=== PATIENT | female | born 1955 | race Caucasian/White ===

== ENCOUNTER → 2018-05-18 09:56 | Outpatient (REF) | payer BC, SELFPAY ==
[2018-05-18 13:37] LABS: ALT 34 U/L (12-78); AST 20 U/L (15-37); Albumin 3.7 g/dL (3.4-5.0); Alkaline Phosphatase 89 U/L (46-116); Anion Gap 9.9 mmol/L (3-11); BUN 13 mg/dL (7-18); Bilirubin, Total 0.6 mg/dL (0.2-1.0); CO2 27.1 mmol/L (21.0-32.0); CREATININE 0.82 mg/dL (0.55-1.02); Calcium 9.1 mg/dL (8.5-10.1); Chloride 102 mmol/L (98-107); Glucose 100 mg/dL (70-100); Potassium 4.4 mmol/L (3.5-5.1); Sodium 139 mmol/L (136-145)
== END ==
LOC: NCHCN 09:56
PROVIDERS: PCP Family Medicine; Visit Provider Nurse Practitioner Family
DX: E78.5 Hyperlipidemia, unspecified (principal); I10 Essential (primary) hypertension; K57.90 Diverticulosis of intestine, part unspecified, without perforation or abscess without bleeding; E66.9 Obesity, unspecified
CPT/HCPCS: 80053

== ENCOUNTER → 2018-05-27 10:51 | Outpatient (CLI) | payer BC, SELFPAY ==
--- NOTE | 2018-05-27 10:42 | DI.REPORT_ITS ---
SYMPTOMS/DIAGNOSIS: PAIN RIGHT KNEE: Two views were obtained. There may be mild degenerative narrowing of the cartilaginous joint space of the medial tibiofemoral joint with minimal associated spurring. No other abnormality is seen.
== END ==
PROVIDERS: PCP Family Medicine; Visit Provider Orthopaedic Surgery
DX: M25.561 Pain in right knee (principal); M17.11 Unilateral primary osteoarthritis, right knee
CPT/HCPCS: 73560

== ENCOUNTER 2018-07-26 06:19 | Emergency (ER) | payer BC, SELFPAY ==
[2018-07-26 06:22] VITALS: BP 155/78; PULSE 63; RESP 18; TEMP 36.2; O2SAT 100
--- NOTE | 2018-07-26 06:39 | W.ED.GENAD ---
Discharge Plan Disposition Patient Disposition: HOME Discharge Details Chief Complaint: Epistaxis Clinical Impression: Acute anterior epistaxis Primary Care Provider: Shaniqua Gaytan ED Provider: Regan Da Silva Home Meds and New Rx's Prescriptions: Continue triamterene-hydrochlorothiazid [Dyazide] 1 EACH capsule 1 tab-cap PO DAILY RF: 0 losartan 25 MG tablet 50 mg PO DAILY RF: 0 atorvastatin 40 MG tablet 40 mg PO DAILY RF: 0 naproxen sodium [Aleve] 220 MG tablet 220 mg PO PRN RF: 0 Discharge Instructions Instructions: Nosebleed (ED) Additional Instructions: Do not blow your nose next few days. Please contact your primary care physician to arrange follow-up. Return to the ER for any worsening or new concerning symptoms. Stand Alone Forms: Work Release Referrals: Shaniqua Gaytan [Primary Care Provider] - Sriram Mcodwell MD [ [facility] STAFF PHYSICIAN] - Medical Decision Making 6:43 -- 63yo f with epistaxis. Afrin and nasal clamp applied. 7:40 -- Patient reassessed and bleeding slowed but still with oozing. I was able to visualize a small oozing bleed from kesselbach plexus. Patient provided verbal consent to cauterization. Silver nitrate cauterization of superficial mucosa performed without complication and bleeding controlled. Usual and customary discharge instructions provided. HPI General Mode of arrival: ambulatory. Date/Time Provider Initiated Documentation: 07/26/18 06:24. Limitations to Documentation: no limitations. Information obtained by: patient. HPI Narrative: 63-year-old female with history of hypertension presents with epistaxis. Patient notes that bleeding started from her left nare around 530 this morning. Bleeding persisted and then she noticed some blood coming from her right nare well. Bleeding was heavy. No modifiers. She does not take blood thinners. Related Data Home Medications Medication Instructions Recorded Confirmed losartan 50 mg PO DAILY tab-cap 08/15/16 07/26/18 triamterene-hydrochlorothiazid 1 tab-cap PO DAILY tab-cap 08/15/16 07/26/18 [Dyazide] atorvastatin 40 mg PO DAILY tab-cap 12/10/17 07/26/18 naproxen sodium [Aleve] 220 mg PO PRN 12/10/17 07/26/18 Allergies Allergy/AdvReac Type Severity Reaction Status Date / Time Penicillins Allergy Unknown Unverified 05/27/18 10:31 neomycin Allergy Skin Rash Unverified 05/27/18 10:31 General Stated Complaint: Epistaxis TEVIN: 4 Review of Systems Constitutional Denies fatigue ENT Reports as per HPI, Denies dizziness and Reports epistaxis Neurologic Denies dizziness Endocrine Denies fatigue Hematologic/Lymphatic Denies easy bleeding PFSH Family History Other Breast cancer Colon cancer Glioblastoma Medical History HTN (hypertension) Hemorrhoids Hypercholesterolemia Left breast mass Left knee pain Overweight Social History Smoking/Tobacco Use Status: Never Surgical History section Colonoscopy - MAC (03/29/18) Tonsillectomy Exam Const General: cooperative and no acute distress HENMT Head: normocephalic and atraumatic General nose exam: no epistaxis Mouth: moist mucous membranes Eyes Conjunctivae: normal conjunctivae Sclera: normal sclerae EOM: EOM intact bilaterally Neck Neck: trachea midline and supple Resp Auscultation: clear to auscultation bilaterally, no rales, no rhonchi and no wheezes Cardio Jugular venous pressure: no JVD Rate: regular rate and not tachycardic Rhythm: regular rhythm Neuro General: alert and awake Course Vital Signs Temperature 36.2 C L 07/26/18 06:22 Pulse 63 07/26/18 06:22 Respiratory Rate 18 07/26/18 06:22 Blood Pressure 155/78 H 07/26/18 06:22 Pulse Oximetry 100 07/26/18 06:22 Temperature 36.2 C L 07/26/18 06:22 Temperature Source Temporal Artery Scan 07/26/18 06:22 Pulse 63 07/26/18 06:22 Respiratory Rate 18 07/26/18 06:22 Respiratory Effort 07/26/18 06:22 Blood Pressure 155/78 H 07/26/18 06:22 Pulse Oximetry 100 07/26/18 06:22 Oxygen Delivery Method Room Air 07/26/18 06:22 Oxygen Flow Rate 0 07/26/18 06:22
--- NOTE | 2018-07-26 06:45 | ED.GENADUL_ITS ---
Discharge Plan Disposition Patient Disposition: HOME Discharge Details Chief Complaint: Epistaxis Clinical Impression: Acute anterior epistaxis Primary Care Provider: Shaniqua Gaytan ED Provider: Regan Da Silva Home Meds and New Rx's Prescriptions: Continue triamterene-hydrochlorothiazid [Dyazide] 1 EACH capsule 1 tab-cap PO DAILY RF: 0 losartan 25 MG tablet 50 mg PO DAILY RF: 0 atorvastatin 40 MG tablet 40 mg PO DAILY RF: 0 naproxen sodium [Aleve] 220 MG tablet 220 mg PO PRN RF: 0 Discharge Instructions Instructions: Nosebleed (ED) Additional Instructions: Do not blow your nose next few days. Please contact your primary care physician to arrange follow-up. Return to the ER for any worsening or new concerning symptoms. Stand Alone Forms: Work Release Referrals: Shaniqua Gaytan [Primary Care Provider] - Sriram Mcdowell MD [ [facility] STAFF PHYSICIAN] - Medical Decision Making 6:43 -- 63yo f with epistaxis. Afrin and nasal clamp applied. 7:40 -- Patient reassessed and bleeding slowed but still with oozing. I was able to visualize a small oozing bleed from kesselbach plexus. Patient provided verbal consent to cauterization. Silver nitrate cauterization of superficial mucosa performed without complication and bleeding controlled. Usual and customary discharge instructions provided. HPI General Mode of arrival: ambulatory . Date/Time Provider Initiated Documentation: 07/26/18 06:24 . Limitations to Documentation: no limitations . Information obtained by: patient . HPI Narrative: 63-year-old female with history of hypertension presents with epistaxis. Patient notes that bleeding started from her left nare around 530 this morning. Bleeding persisted and then she noticed some blood coming from her right nare well. Bleeding was heavy. No modifiers. She does not take blood thinners. Related Data Home Medications Medication Instructions Recorded Confirmed losartan 50 mg PO DAILY tab-cap 08/15/16 07/26/18 triamterene-hydrochlorothiazid 1 tab-cap PO DAILY tab-cap 08/15/16 07/26/18 [Dyazide] atorvastatin 40 mg PO DAILY tab-cap 12/10/17 07/26/18 naproxen sodium [Aleve] 220 mg PO PRN 12/10/17 07/26/18 Allergies Allergy/AdvReac Type Severity Reaction Status Date / Time Penicillins Allergy Unknown Unverified 05/27/18 10:31 neomycin Allergy Skin Rash Unverified 05/27/18 10:31 General Stated Complaint: Epistaxis TEVIN: 4 Review of Systems Constitutional Denies fatigue ENT Reports as per HPI, Denies dizziness and Reports epistaxis Neurologic Denies dizziness Endocrine Denies fatigue Hematologic/Lymphatic Denies easy bleeding PFSH Family History Other Breast cancer Colon cancer Glioblastoma Medical History HTN (hypertension) Hemorrhoids Hypercholesterolemia Left breast mass Left knee pain Overweight Social History Smoking/Tobacco Use Status: Never Surgical History section Colonoscopy - MAC (03/29/18) Tonsillectomy Exam Const General: cooperative and no acute distress HENMT Head: normocephalic and atraumatic General nose exam: no epistaxis Mouth: moist mucous membranes Eyes Conjunctivae: normal conjunctivae Sclera: normal sclerae EOM: EOM intact bilaterally Neck Neck: trachea midline and supple Resp Auscultation: clear to auscultation bilaterally, no rales, no rhonchi and no wheezes Cardio Jugular venous pressure: no JVD Rate: regular rate and not tachycardic Rhythm: regular rhythm Neuro General: alert and awake Course Vital Signs Temperature 36.2 C L 07/26/18 06:22 Pulse 63 07/26/18 06:22 Respiratory Rate 18 07/26/18 06:22 Blood Pressure 155/78 H 07/26/18 06:22 Pulse Oximetry 100 07/26/18 06:22 Temperature 36.2 C L 07/26/18 06:22 Temperature Source Temporal Artery Scan 07/26/18 06:22 Pulse 63 07/26/18 06:22 Respiratory Rate 18 07/26/18 06:22 Respiratory Effort 07/26/18 06:22 Blood Pressure 155/78 H 07/26/18 06:22 Pulse Oximetry 100 07/26/18 06:22 Oxygen Delivery Method Room Air 07/26/18 06:22 Oxygen Flow Rate 0 07/26/18 06:22
== END 2018-07-26 08:01 | disposition home or self-care (01) ==
PROVIDERS: Emergency Provider Student in an Organized Health Care Education/Training Program; PCP Family Medicine
DX: R04.0 Epistaxis (principal); I10 Essential (primary) hypertension
CPT/HCPCS: 30901

== ENCOUNTER 2019-07-07 10:36 | Outpatient (REF) | payer MEDICARE, BC, SELFPAY ==
[2019-07-07 12:57] LABS: Abs Immature Grans 0.02 k/cumm (0.0-0.09); Absolute Basophil Count 0.02 k/cumm (0.0-0.2); Absolute Eosinophil Count 0.09 k/cumm (0.0-0.7); Absolute Lymphocyte Count 2.15 k/cumm (1.2-3.4); Absolute Monocyte Count 0.69 k/cumm (0.11-0.7); Absolute Neutrophil Count 4.81 k/cumm (1.2-6.7); Basophils % 0.3; Eosinophils % 1.2; HCT 46.6 % (36.0-46.0); Immature Grans % 0.3; Lymphocytes % 27.6; Mean Corp. HGB Concentration 32.2 g/dL (32.0-36.0); Mean Corpuscular Hemoglobin 31.9 pg (27.0-33.0); Mean Corpuscular Volume 99.1 fL (80-95); Mean Platelet Volume 10.7 fL (8.0-11.0); Monocytes % 8.9; Neutrophils % 61.7; Platelet Count 303 x1000/uL (130-400); RBC Distribution Width 12.2 % (11.7-14.6); White Blood Cell Count 7.78 k/cumm (4.4-10.8)
[2019-07-07 15:12] LABS: ALT 41 U/L (14-59); AST 23 U/L (15-37); Albumin 3.8 g/dL (3.4-5.0); Alkaline Phosphatase 94 U/L (46-116); Anion Gap 9.4 mmol/L (3-11); BUN 13 mg/dL (7-18); Bilirubin, Total 0.5 mg/dL (0.2-1.0); CO2 28.6 mmol/L (21.0-32.0); CREATININE 0.75 mg/dL (0.55-1.02); Calcium 9.3 mg/dL (8.5-10.1); Chloride 100 mmol/L (98-107); Glucose 110 mg/dL (70-100); Potassium 4.5 mmol/L (3.5-5.1); Sodium 138 mmol/L (136-145); Total Protein 7.3 g/dL (6.4-8.2)
== END 2019-07-07 10:56 ==
LOC: NCHCN 10:36
PROVIDERS: PCP Family Medicine; Visit Provider Nurse Practitioner Family
DX: Z00.00 Encounter for general adult medical examination without abnormal findings (principal); E78.5 Hyperlipidemia, unspecified; I10 Essential (primary) hypertension; R23.8 Other skin changes; H91.93 Unspecified hearing loss, bilateral; K64.9 Unspecified hemorrhoids
CPT/HCPCS: 80053; 85025

== ENCOUNTER 2019-08-04 00:57 | Outpatient (CLI) | payer MEDICARE, BC, SELFPAY ==
--- NOTE | 2019-08-04 15:00 | DI.DEXA_ITS ---
EXAM: XR DEXA BONE DENSITY W/WO JONI CLINICAL HISTORY: ASYPTOMATIC POSTMENOPAUSAL STATUS Z78.0 TECHNIQUE: DEXA scan was performed according to the usual protocol. COMPARISON: No exams were available for comparison FINDINGS: Findings for lumbar spine scanning are a T-score of -0.5. Findings for left hip scanning are a T-score of -1.1 with left femoral neck T-score of -1.6. Left forearm scanning shows T-score of -0.6. IMPRESSION: Findings consistent with osteopenia according to the WHO criteria. Lateral vertebral scanogram shows no definite vertebral compression fracture, although minimal wedging is noted in midthoracic vertebr ae, probably developmental. If clinically appropriate, additional evaluation with radiographs of the thoracic spine could be obtained to more accurately evaluate the thoracic vertebrae for fracture.
--- NOTE | 2019-08-04 15:15 | DI.MAMMO_ITS ---
EXAM: MAMMO SCREENING CLINICAL HISTORY: SCREENING Z12.31 TECHNIQUE: Mammograms were interpreted according to the usual protocol including computer analysis w [employer] CAD system, tomosynthesis and C-view imaging. FINDINGS: The breasts are of moderate density with fairly symmetrical distribution of fibroglandular tissue. T here is a lobulated area of nodularity in the central portion of the left breast which appears to hav e increased in size in comparison with previous examinations and which now measures up to about 13 mi llimeters in diameter. No other mass identified in either breast. No clumped microcalcification is seen. The mass as visualized appears fairly well-circumscribed but the borders are incompletely seen . Additional mammographic views are recommended to include MLO and CC spot compression views and crista st ultrasound of left breast is recommended as well. IMPRESSION: Additional mammographic views of the left breast and left breast ultrasound are requested as describe d above. Category 0. Breast density, category B. BI-RADS Cat 0 - Assessment Incomplete: Need additional imaging evaluation. Breast Density - Category B - Scattered areas of fibroglandular density.
== END 2019-08-04 01:17 ==
PROVIDERS: PCP Family Medicine; Visit Provider Nurse Practitioner Family
DX: Z78.0 Asymptomatic menopausal state (principal); M85.88 Other specified disorders of bone density and structure, other site; Z12.31 Encounter for screening mammogram for malignant neoplasm of breast; R92.8 Other abnormal and inconclusive findings on diagnostic imaging of breast
CPT/HCPCS: 77063; 77067; 77080

== ENCOUNTER 2019-08-11 01:35 | Outpatient (CLI) | payer MEDICARE, BC, SELFPAY ==
--- NOTE | 2019-08-11 14:46 | DI.MAMMO_ITS ---
EXAM: MG MAMMO SCREEN CALL BACK UNI AND US BREAST LT LIMITED CLINICAL HISTORY: LOBULATED AREA OF NODULARITY IN CENTRAL PORTION LT BREAST, APPEARS TO HAVE INCREAS ED IN SIZE TECHNIQUE: Spot compression views with tomography were performed in the MLO and CC projections. Ult rasound performed using standard protocol. COMPARISON: Mammograms from 2012 through 2019. FINDINGS: There is a persistent lobulated circumscribed nodule in the central left breast. There is no definit e change in size when compared with previous exams. Left breast ultrasound: 2 adjacent cysts are noted in the central left breast measuring 6 and 7 samantha meters in size. The appearance is consistent with the mammographic nodule. No suspicious masses are identified. IMPRESSION: Category 2, negative mammogram with benign findings. Yearly screening mammography is recommended. BI-RADS Cat 2 - Benign Findings Breast Density - Category B - Scattered areas of fibroglandular density
== END 2019-08-11 01:55 ==
PROVIDERS: PCP Family Medicine; Visit Provider Nurse Practitioner Family
DX: Z12.31 Encounter for screening mammogram for malignant neoplasm of breast (principal); R92.8 Other abnormal and inconclusive findings on diagnostic imaging of breast; N60.02 Solitary cyst of left breast
CPT/HCPCS: 76642; 77063; 77067

== ENCOUNTER 2020-11-19 16:02 | Outpatient (REF) | payer MEDICARE, BC, SELFPAY ==
[2020-11-19 22:02] LABS: Abs Immature Grans 0.04 10^3/uL (0.0-0.06); Absolute Basophil Count 0.03 10^3/uL (0.0-0.2); Absolute Eosinophil Count 0.08 10^3/uL (0.0-0.7); Absolute Lymphocyte Count 2.44 10^3/uL (1.2-3.4); Absolute Monocyte Count 0.83 10^3/uL (0.1-0.8); Absolute Neutrophil Count 7.35 10^3/uL (1.2-6.7); Basophils % 0.3; Eosinophils % 0.7; HCT 44.4 % (36.0-46.0); HGB 14.5 g/dL (11.2-15.7); Immature Grans % 0.4; Lymphocytes % 22.7; MCHC 32.7 % (32.0-36.0); MCV 100.9 fL (80-95); MPV 10.9 fL (8.0-11.0); Monocytes % 7.7; Neutrophils % 68.2; Nucleated RBC 0 %; Platelet Count 318 10^3/uL (130-400); RDW 11.9 % (11.7-14.6); RDW-SD 44.5 fL; WBC 10.77 10^3/uL (4.4-10.8)
[2020-11-19 22:18] LABS: ALT 37 U/L (14-59); AST 26 U/L (15-37); Alkaline Phosphatase 92 U/L (46-116); Anion Gap 9.1 mmol/L (3-11); BUN 14 mg/dL (7-18); Bilirubin, Total 0.5 mg/dL (0.2-1.0); CO2 30.9 mmol/L (21.0-32.0); CREATININE 0.8 mg/dL (0.55-1.02); Calcium 9.8 mg/dL (8.5-10.1); Chloride 100 mmol/L (98-107); Glucose 100 mg/dL (74-106); Potassium 3.9 mmol/L (3.5-5.1); Sodium 140 mmol/L (136-145); Total Protein 7.5 g/dL (6.4-8.2)
[2020-11-19 22:21] LABS: Hemoglobin A1C 5.6 % (<5.7)
[2020-11-21 10:34] LABS: Hepatitis C Ab w Rflx HCV PCR Negative (Negative)
== END 2020-11-19 16:03 | disposition home or self-care (01) ==
LOC: NCHCN 16:02
PROVIDERS: PCP Family Medicine; Visit Provider Nurse Practitioner Family
DX: R07.89 Other chest pain (principal); R13.10 Dysphagia, unspecified; H61.309 Acquired stenosis of external ear canal, unspecified, unspecified ear; M85.88 Other specified disorders of bone density and structure, other site; K64.9 Unspecified hemorrhoids; E78.5 Hyperlipidemia, unspecified; I10 Essential (primary) hypertension; Z00.00 Encounter for general adult medical examination without abnormal findings; Z11.59 Encounter for screening for other viral diseases
CPT/HCPCS: 80053; 86803; 83036; 85025

== ENCOUNTER 2020-11-23 03:03 | Outpatient (CLI) | payer MEDICARE, BC, SELFPAY ==
--- NOTE | 2020-11-23 15:55 | DI.MAMMO_ITS ---
EXAM: MG MAMMO SCREENING CLINICAL HISTORY: SCREENING,Z12.31. TECHNIQUE: Bilateral full field digital CC and MLO mammographic images were obtained with 3D tomosyn thesis and utilizing computer aided detection (CAD). COMPARISON: Prior mammograms dating back to 2012, the most recent being 2019. Prior ultrasound revi ewed. Sister diagnosed breast cancer age 50 FINDINGS: There are multiple stable benign-appearing nodules both breasts again noted. However, in the left breast there is a new noncalcified lobulated nodule measuring 4 x 3 millimeters located 3 cm in from the nipple. Breast ultrasound recommended. No malignant-appearing microcalcifi cation groups in this region or elsewhere in either breast. There is no significant architectural d istortion nor skin thickening-retraction. IMPRESSION: In addition to stable bilateral nodules there is a new 4 x 3 millimeter left breast nodules described above. Ultrasound is recommended to determine if this is solid or cystic. BI-RADS Category 0 - Assessment Incomplete: Need additional imaging evaluation Breast Density - Category B - Scattered areas of fibroglandular density Breast density Category C or D implies that the patient has dense breast tissue. Dense breast tissue can make it harder to find cancer on a mammogram. Dense breast tissue is also associated with an incr eased risk of breast cancer. This information about the result of the mammogram report was provided to the patient to raise their awareness. Use this report when you speak with the patient about their risks for breast cancer, which includes their family history. At that time, you may recommend additional screening tests (Ultrasoun d or MRI) as these tests may add significant information. A negative radiographic report should not delay biopsy if a dominant or clinically suspicious mass is present. Up to ten percent of cancers are not identified on mammography. A negative report may reinforce clinical impression. Adenosis and dense breasts may obscure an underlying neoplasm. False positive reports average 6 to 10%. Patient will receive a letter notifying them of these results.
== END 2020-11-23 03:04 ==
PROVIDERS: PCP Nurse Practitioner Family; Visit Provider Nurse Practitioner Family
DX: Z12.31 Encounter for screening mammogram for malignant neoplasm of breast (principal); N63.20 Unspecified lump in the left breast, unspecified quadrant; N63.10 Unspecified lump in the right breast, unspecified quadrant
CPT/HCPCS: 77063; 77067

== ENCOUNTER 2020-11-29 01:15 | Outpatient (CLI) | payer MEDICARE, BC, SELFPAY ==
--- NOTE | 2020-11-29 | DI.US_ITS ---
EXAM: US BREAST LT LIMITED CLINICAL HISTORY: F/U MAMMO, LT BREAST NODULE,R92.8. TECHNIQUE: Limited ultrasound of the left breast was performed. COMPARISON: Prior mammograms were reviewed. Most recent mammogram is 11/23/2020 FINDINGS: At the 3 o'clock position there is a small conglomeration microcysts measuring 4 x 3 millimeters whic h corresponds to the benign-appearing nodule seen on the recent screening mammogram. Also noted is a larger conglomeration microcyst at 2 o'clock position measuring approximately 10 by 6 millimeters and corresponding to the larger more stable nodule seen on the mammogram. IMPRESSION: Benign left breast ultrasound findings as described above. The recently described new 4 millimeter n odule on the mammogram corresponds to a small conglomeration microcysts of similar size located at th e 3 o'clock position on today's ultrasound. Appropriate follow-up is repeat left breast MAMMOGRAM in 6 months, with earlier imaging if a self det ected breast change is noted.. BI-RADS Category 3 - 6 month - Probably Benign Finding: Recommend follow-up mammography in 6 months Breast Density - Category B - Scattered areas of fibroglandular density Breast density Category C or D implies that the patient has dense breast tissue. Dense breast tissue can make it harder to find cancer on a mammogram. Dense breast tissue is also associated with an incr eased risk of breast cancer. This information about the result of the mammogram report was provided to the patient to raise their awareness. Use this report when you speak with the patient about their risks for breast cancer, which includes their family history. At that time, you may recommend additional screening tests (Ultrasoun d or MRI) as these tests may add significant information. A negative radiographic report should not delay biopsy if a dominant or clinically suspicious mass is present. Up to ten percent of cancers are not identified on mammography. A negative report may reinforce clinical impression. Adenosis and dense breasts may obscure an underlying neoplasm. False positive reports average 6 to 10%. Patient will receive a letter notifying them of these results.
== END 2020-11-29 01:16 ==
LOC: DI 01:15
PROVIDERS: PCP Nurse Practitioner Family; Visit Provider Nurse Practitioner Family
DX: Z12.31 Encounter for screening mammogram for malignant neoplasm of breast (principal); R92.8 Other abnormal and inconclusive findings on diagnostic imaging of breast; N60.82 Other benign mammary dysplasias of left breast
CPT/HCPCS: 76642

== ENCOUNTER 2021-06-04 03:26 | Outpatient (CLI) | payer MEDICARE, SELFPAY ==
--- NOTE | 2021-06-04 | DI.MAMMO_ITS ---
Exam(s) MAMMO DIAGNOSTIC UNI EXAM: MAMMO DIAGNOSTIC UNI CLINICAL HISTORY: ABNL FINDINGS, LT BREAST MASS, N63. COMPARISON: 23 November 2020 mammogram and 29 November 2020 left breast ultrasound TECHNIQUE: Craniocaudal and mediolateral oblique Full Field Digital Mammography views of the left b reast with Computer Aided Diagnosis followed by Tomosynthesis FINDINGS: Mammography/Tomosynthesis: Masses/Architectural Distortion: Stable areas of nodularity in the seen upper central left breast. N o suspicious masses. Microcalcifications: No suspicious pleomorphic-type are seen. Skin Thickening/Nipple Retraction: None. IMPRESSION: 1. No evidence of malignancy is noted. 2. Unless there is more urgent need, follow-up screening mammography is recommended, as per [place] [employer] guidelines. BI-RADS Category 2 - Benign Findings Breast Density - Category B - Scattered areas of fibroglandular density A negative radiographic report should not delay biopsy if a dominant or clinically suspicious mass is present. Up to ten percent of cancers are not identified on mammography. A negative report may reinforce clinical impression. Adenosis and dense breasts may obscure an underlying neoplasm. False positive reports average 6 to 10%. Patient will receive a letter notifying them of these results.
== END 2021-06-04 03:46 ==
PROVIDERS: PCP Nurse Practitioner Family; Visit Provider Nurse Practitioner Family
DX: R92.8 Other abnormal and inconclusive findings on diagnostic imaging of breast (principal); N63.25 Unspecified lump in the left breast, overlapping quadrants
CPT/HCPCS: 77061; 77065; G0279

== ENCOUNTER 2021-12-30 10:19 | Outpatient (REF) | payer MEDICARE, SELFPAY ==
[2021-12-30 20:50] LABS: Abs Immature Grans 0.04 10^3/uL (0.0-0.06); Absolute Basophil Count 0.04 10^3/uL (0.0-0.2); Absolute Eosinophil Count 0.09 10^3/uL (0.0-0.7); Absolute Lymphocyte Count 2.14 10^3/uL (1.2-3.4); Absolute Monocyte Count 0.73 10^3/uL (0.1-0.8); Absolute Neutrophil Count 6.17 10^3/uL (1.2-6.7); Basophils % 0.4; HGB 14.8 g/dL (11.2-15.7); Immature Grans % 0.4; Lymphocytes % 23.2; MCH 32.5 pg (27.0-33.0); MCHC 32.2 % (32.0-36.0); MCV 101.1 fL (80-95); MPV 10.7 fL (8.0-11.0); Monocytes % 7.9; Neutrophils % 67.1; Nucleated RBC 0 %; Platelet Count 287 10^3/uL (130-400); RBC 4.55 10^6/uL (3.93-5.22); RDW 11.7 % (11.7-14.6); RDW-SD 43.5 fL; WBC 9.21 10^3/uL (4.4-10.8)
[2021-12-30 21:31] LABS: ALT 28 U/L (14-59); AST 20 U/L (15-37); Alkaline Phosphatase 78 U/L (46-116); Anion Gap 9.6 mmol/L (3-11); BUN 17 mg/dL (7-18); Bilirubin, Total 0.6 mg/dL (0.2-1.0); CO2 28.4 mmol/L (21.0-32.0); CREATININE 0.7 mg/dL (0.55-1.02); Calcium 9.3 mg/dL (8.5-10.1); Chloride 102 mmol/L (98-107); Folate 11.1 ng/mL (8.6-20.0); Glucose 104 mg/dL (74-106); Potassium 4.3 mmol/L (3.5-5.1); Sodium 140 mmol/L (136-145); Total Protein 7.2 g/dL (6.4-8.2); Vitamin B12 284 pg/mL (193-986)
[2021-12-30 22:08] LABS: Vitamin D 25 Total 38.2 ng/mL (30-100)
== END 2021-12-30 10:20 | disposition home or self-care (01) ==
LOC: NCHCN 10:19
PROVIDERS: PCP Nurse Practitioner Family; Visit Provider Nurse Practitioner Family
DX: I10 Essential (primary) hypertension (principal); D75.89 Other specified diseases of blood and blood-forming organs
CPT/HCPCS: 80053; 82306; 82607; 82746; 85025

== ENCOUNTER → 2022-06-09 02:36 | Outpatient (CLI) | payer MEDICARE, SELFPAY ==
--- NOTE | 2022-06-09 | DI.MAMMO_ITS ---
Exam(s) MAMMO SCREENING EXAM: MAMMO SCREENING CLINICAL HISTORY: SCREENING, Z12.31,FAMILY H/O BREAST CA,Z80.3 TECHNIQUE: Bilateral full field digital CC and MLO mammographic images were obtained with 3D tomosyn thesis and utilizing computer aided detection (CAD). COMPARISON: Available for comparison. FINDINGS: Masses/Architectural Distortion: The nodules in the central left breast are stable. No suspicious no dules or areas of architectural distortion are present. Microcalcifications: No suspicious pleomorphic-type are seen. Skin Thickening/Nipple Retraction: None. IMPRESSION: 1. No significant interval change with no specific features of malignancy noted. 2. Unless there is more urgent need, screening mammography is recommended, as per [place] [employer] guidelines. BI-RADS Category 2 - Benign Findings Breast Density - Category B - Scattered areas of fibroglandular density Breast density category C or D implies that the patient has dense breast tissue. Dense breast tissue is very common and is not abnormal but dense breast tissue can make it harder to find cancer on a ma mmogram. Also, dense breast tissue may increase their breast cancer risk. This information about the result of the mammogram report was provided to the patient to raise their awareness. Use this report when you speak with the patient about their risks for breast cancer, which includes their family hist ory. At that time, you may recommend for more screening tests (Ultrasound or MRI) as they might be us eful based on their risk. A negative radiographic report should not delay biopsy if a dominant or clinically suspicious mass is present. Up to ten percent of cancers are not identified on mammography. A negative report may reinforce clinical impression. Adenosis and dense breasts may obscure an underlying neoplasm. False positive reports average 6 to 10%. Patient will receive a letter notifying them of these results.
== END ==
PROVIDERS: PCP Nurse Practitioner Family; Visit Provider Nurse Practitioner Family
DX: Z12.31 Encounter for screening mammogram for malignant neoplasm of breast (principal); Z80.3 Family history of malignant neoplasm of breast
CPT/HCPCS: 77063; 77067

== ENCOUNTER 2023-06-12 17:51 | Outpatient (REF) | payer MEDICARE, SELFPAY ==
[2023-06-12 15:47] LABS: HCT 44.3 % (36.0-46.0); HGB 14.7 g/dL (11.2-15.7); Lymphocytes % 26.2; MCH 33.3 pg (27.0-33.0); MCHC 33.2 % (32.0-36.0); MCV 101 fL (80-95); MPV 10.4 fL (8.0-11.0); Monocytes % 8.7; Neutrophils % 63.4; Platelet Count 250 10^3/uL (130-400); RBC 4.41 10^6/uL (3.93-5.22); RDW 11.9 % (11.7-14.6); RDW-SD 44.1 fL; WBC 7.79 10^3/uL (4.4-10.8)
[2023-06-12 15:48] LABS: Abs Immature Grans 0.03 10^3/uL (0.0-0.06); Absolute Basophil Count 0.02 10^3/uL (0.0-0.2); Absolute Eosinophil Count 0.08 10^3/uL (0.0-0.7); Absolute Lymphocyte Count 2.04 10^3/uL (1.2-3.4); Absolute Monocyte Count 0.68 10^3/uL (0.1-0.8); Absolute Neutrophil Count 4.94 10^3/uL (1.2-6.7); Basophils % 0.3; Immature Grans % 0.4
[2023-06-12 16:59] LABS: ALT 35 U/L (14-59); AST 22 U/L (15-37); Albumin 3.7 g/dL (3.4-5.0); Alkaline Phosphatase 85 U/L (46-116); Anion Gap 7.4 mmol/L (3-11); BUN 16 mg/dL (7-18); Bilirubin, Total 0.7 mg/dL (0.2-1.0); CO2 31.6 mmol/L (21.0-32.0); CREATININE 0.7 mg/dL (0.55-1.02); Calcium 9.5 mg/dL (8.5-10.1); Chloride 101 mmol/L (98-107); Estimated GFR 92.98 (mL/min/1.73m2); Glucose 102 mg/dL (74-106); Potassium 4.3 mmol/L (3.5-5.1); Sodium 140 mmol/L (136-145); Total Protein 6.9 g/dL (6.4-8.2); Vitamin B12 1016 pg/mL (193-986)
[2023-06-12 19:19] LABS: Vitamin D 25 Total 41.6 ng/mL (30-100)
== END 2023-06-12 17:52 | disposition home or self-care (01) ==
LOC: NCHCN 17:51
PROVIDERS: PCP Nurse Practitioner Family; Visit Provider Nurse Practitioner Family
DX: E78.5 Hyperlipidemia, unspecified (principal); I10 Essential (primary) hypertension; D75.89 Other specified diseases of blood and blood-forming organs; R23.3 Spontaneous ecchymoses; M85.88 Other specified disorders of bone density and structure, other site; Z79.899 Other long term (current) drug therapy
CPT/HCPCS: 80053; 82306; 82607; 84425; 85025

== ENCOUNTER 2023-06-25 17:13 | Outpatient (REF) | payer MEDICARE, SELFPAY ==
[2023-06-25 16:10] LABS: Folate > 20.0 ng/mL (8.6-20.0)
[2023-06-30 12:11] LABS: Methylmalonic Acid 0.15 nmol/mL (<=0.40)
[2023-07-01 23:28] LABS: Thiamine (Vitamin B1), WB 183 nmol/L (70-180)
== END 2023-06-25 17:14 | disposition home or self-care (01) ==
LOC: NCHCN 17:13
PROVIDERS: PCP Nurse Practitioner Family; Visit Provider Nurse Practitioner Family
DX: D75.89 Other specified diseases of blood and blood-forming organs (principal)
CPT/HCPCS: 80186; 82746; 84425

== ENCOUNTER → 2023-07-23 00:14 | Outpatient (CLI) | payer MEDICARE, SELFPAY ==
--- NOTE | 2023-07-23 | DI.MAMMO_ITS ---
Exam(s) MAMMO SCREENING EXAM: MAMMO SCREENING CLINICAL HISTORY: SCREENING, Z12.31, FAMILY HX BREAST CA, Z80.3 TECHNIQUE: Bilateral full field digital CC and MLO mammographic images were obtained with 3D tomosyn thesis and utilizing computer aided detection (CAD). COMPARISON: Available for comparison. FINDINGS: Masses/Architectural Distortion: There is stable bilateral nodules. No new nodules. No areas of arc hitectural distortion are seen. Microcalcifications: No suspicious pleomorphic-type are seen. Skin Thickening/Nipple Retraction: None. IMPRESSION: 1. No significant interval change with no specific features of malignancy noted. 2. Unless there is more urgent need, screening mammography is recommended, as per [place] [employer] guidelines. BI-RADS Category 2 - Benign Findings Breast Density - Category B - Scattered areas of fibroglandular density Breast density category C or D implies that the patient has dense breast tissue. Dense breast tissue is very common and is not abnormal but dense breast tissue can make it harder to find cancer on a ma mmogram. Also, dense breast tissue may increase their breast cancer risk. This information about the result of the mammogram report was provided to the patient to raise their awareness. Use this report when you speak with the patient about their risks for breast cancer, which includes their family hist ory. At that time, you may recommend for more screening tests (Ultrasound or MRI) as they might be us eful based on their risk. A negative radiographic report should not delay biopsy if a dominant or clinically suspicious mass is present. Up to ten percent of cancers are not identified on mammography. A negative report may reinforce clinical impression. Adenosis and dense breasts may obscure an underlying neoplasm. False positive reports average 6 to 10%. Patient will receive a letter notifying them of these results.
--- NOTE | 2023-07-23 | DI.DEXA_ITS ---
Exam(s) XR DEXA BONE DENSITY W/WO JONI EXAM: XR DEXA BONE DENSITY W/WO JONI CLINICAL HISTORY: OTHER SPECIFIED DISORDERS BONE DENSITY, M85.88 TECHNIQUE: COMPARISON: CR XR DEXA BONE DENSITY W/WO JONI from 08/04/2019 FINDINGS: Lateral Spine Image: Unremarkable. No compression deformities identified. Left hip: Total T-Score: -0.9. This compares to -1.1 on the prior examination. Total Z-Score: 0.6 T- and Z-scores: Within normal limits. Lumbar Spine: Total T-Score: -0.1. This compares to -0.5 on the prior examination. Total Z-Score: 2.1 T- and Z-scores: Within normal limits. IMPRESSION: No evidence of osteoporosis.
== END ==
PROVIDERS: PCP Nurse Practitioner Family; Visit Provider Nurse Practitioner Family
DX: M85.88 Other specified disorders of bone density and structure, other site (principal); Z12.31 Encounter for screening mammogram for malignant neoplasm of breast; Z80.3 Family history of malignant neoplasm of breast
CPT/HCPCS: 77063; 77067; 77080

== ENCOUNTER → 2023-12-24 10:19 | Outpatient (BNVA) | payer MEDICARE, SELFPAY | PROVIDERS: PCP Nurse Practitioner Family; Referring Provider Nurse Practitioner Family; Visit Provider Physical Therapy Assistant | DX: Z12.11 Encounter for screening for malignant neoplasm of colon (principal); Z86.010 Personal history of colon polyps; Z80.0 Family history of malignant neoplasm of digestive organs ==

== ENCOUNTER 2023-12-28 10:39 | Day surgery (SDC) | payer MEDICARE, SELFPAY ==
--- NOTE | 2023-12-27 18:47 | PDOC.DSDIS_ITS ---
Date of service: 12/28/23 Time of Service: 11:47 Discharge Plan Disposition Patient Disposition: Home Condition: Good Discharge Details Reason For Visit: screening colonoscopy Attending Provider: Roshan Payne Primary Care Provider: Mary Gonsalez Home Meds and New Rx's Prescriptions: Continued cholecalciferol (vitamin D3) 25 mcg (1,000 unit) capsule 25 mcg PO DAILY calcium carbonate [Calcium 500] 500 mg calcium (1,250 mg) tablet 500 mg PO DAILY mecobalamin (vitamin B12) 1,000 mcg tablet,chewable 1,000 mcg PO DAILY triamterene-hydrochlorothiazid [Dyazide] 1 EACH capsule 1 tab-cap PO DAILY atorvastatin 40 MG tablet 40 mg PO DAILY losartan 25 mg tablet 100 mg PO DAILY Discharge Instructions Instructions: Diverticulosis (GEN), Colorectal Polyps (GEN), Diverticulosis Diet (GEN) Additional Instructions: Chely, we were able to complete your colonoscopy today without any difficulty. I did find 2 polyps. Both were quite small and I removed them without any difficulty. Both will be sent off to be tested by the pathologist, and once I know the nature of those polyps, I will be in touch with regards to r ecommendations for your next colonoscopy. Incidentally, he also have a little bit of diverticulosis. Diverticula are little weak spots in the muscular part of the colon wall. Although they can become infected and inflamed (patients usually have quite a bit of pain on the left side, and feel pretty ill when this is happening) most of my patients are never bothered by them. Have attached some general information here regarding diverticular management. Once I have the results of the polyp report I will be in touch. If you have any questions in the meantime, please do not hesitate to call at any point. 1. If tolerated, consume a soft, low fiber diet for 1-2 days. 2. Do not drive, drink alcohol, operate machinery, make critical decisions, or do activities that require coordination or balance for 24 hours. 3. Because air was put into your colon during the procedure, expelling air from your rectum (passing gas or farting) is normal. 4. You may not have a bowel movement for 1-3 days because of the colonoscopy prep. This is normal. 5. Go directly to the emergency room if you notice any of the following: Develop chills (warm to touch), or if you have a thermometer and your temperature is above 101 Difficulty breathing or difficultly swallowing Persistent vomiting Severe abdominal pain, other than gas cramps Severe chest pain Black, tarry stools Any bleeding ? exceeding one tablespoon 6. Call your physician if the site where your intravenous was started becomes red, swollen, painful, and warm to touch. 7. Your physician has reviewed your pre-procedure medications. Please continue to take those medications as previously ordered. You will be given specific information/education regarding any changes to your medications before leaving. Activity:: Activity as Tolerated Diet:: As Tolerated Discharge Orders Discharge Orders: Discharge Order (Routine); Ordered 12/27/23 Ordered By: Roshan Payne DS: Diagnosis Discharge Diagnosis (1) Family history of colon cancer: Status: Acute Asessment and Plan: Follow-up on polyp results
--- NOTE | 2023-12-27 18:48 | COLE_ITS ---
Date of service: 12/28/23 Time of Service: 11:49 Colonoscopy Report Date of procedure: 12/28/23 Pre-op diagnosis general: screening colonoscopy Post-op diagnosis procedure note: other (Diverticulosis, colon polyps) Procedure: colonoscopy with polypectomy Surgeon: Roshan Payne Anesthesia Type: General:No Airway Estimated blood loss (mL): 5 Pathology: other (0.25 cm polyp at 110 cm, 0.5 cm polyp at 25 cm) Complications: None Disposition: same day Indications: Thuy is a 68 year old woman with a family history of colon cancer who needs her next screening colonscopy Prep: Miralax/Dulcolax Procedure Start Time: 11:24 Procedure End Time: 11:40 Retraction Time: 12 Findings: Diverticulosis, 0.25 cm polyp at 110 cm, 0.5 cm polyp at 25 cm Procedure Description: After the induction of monitored anesthetic care, and with the patient in left lateral decubitus position, I began by performing an external anorectal exam.? Perineum and skin were normal, as was the anal verge.? There was no evidence of external hemorrhoids.? Next, I performed a digital rectal exam.? I did not appreciate any abnormal findings.? Next, I advanced a colonoscope into the rectal vault.? I performed retroflexion.? This was normal.? Using insufflation, I then advanced the colonoscope beyond the rectal folds and into the sigmoid colon before advancing towards the cecum.? There was some occasional diverticulosis mostly in the sigmoid colon..? The scope was noted to be in the cecum by identification of the ileocecal valve and appendiceal orifice.? I then began withdrawing the colonoscope using repeated irrigation as necessary for full evaluation of the colonic mucosa. Around 110 cm from the anal verge was a 0.25 cm flat polyp. This was removed with cold forceps. There was minimal bleeding. I found another polyp around 25 cm from the anus. This was about 0.5 cm, and a little more raised. I did remove this with cold forceps as well. ?Once the scope was withdrawn to the level of the rectum, great care was taken to examine portions of the rectal folds.? Finally, the scope was withdrawn and the patient was brought to the same-day surgery recovery unit as the anesthetic wore off. ?The findings and instructions were shared with the patient prior to discharge. [place] Bowel Prep [place] Bowel Prep Right Colon: 3 Left Colon: 3 Transverse Colon: 3 Total Score: 9
[2023-12-28 10:55] VITALS: BP 180/97; PULSE 58; RESP 16; TEMP 36.3; O2SAT 99
[2023-12-28] MEDS: Lactated Ringers 1,000 ML 80 ML IV (11:03)
--- NOTE | 2023-12-28 11:12 | ANES.PREOP_ITS ---
General Info Date of Service Date Performed: 12/28/23 Height: 5 ft 7 in Weight: 113.398 kg Body Mass Index (BMI): 39.1 Surgical Procedure: Operation Date: 12/28/23 12:05 Proposed Procedure Side Surgeon p Colonoscopy Roshan Payne MD Actual Procedure Side Surgeon p Colonoscopy Not Applicable Roshan Payne MD Pre-Op Diagnosis Post-Op Diagnosis Screening colonoscopy History of Hyperplastic Polyps Meds Allergies and Home Medications Allergies Allergy/AdvReac Type Severity Reaction Status Date / Time amoxicillin [From Augmentin] Allergy Unknown Unknown Verified 12/28/23 10:48 Penicillins Allergy Unknown Unknown Verified 12/28/23 10:48 clavulanic acid Allergy Unknown Verified 12/28/23 10:48 [From Augmentin] neomycin Allergy Skin Rash Verified 12/28/23 10:48 Home Medication Medication Instructions Recorded triamterene 37.5 1 tab-cap PO DAILY 08/15/16 mg-hydrochlorothiazide 25 mg capsule (Dyazide) atorvastatin 40 mg tablet 40 mg PO DAILY 12/10/17 calcium carbonate 500 mg calcium 500 mg PO DAILY 07/23/21 (1,250 mg) tablet (Calcium 500) cholecalciferol (vitamin D3) 25 25 mcg PO DAILY 07/23/21 mcg (1,000 unit) capsule losartan 25 mg tablet 100 mg PO DAILY 08/10/23 mecobalamin (vitamin B12) 1,000 1,000 mcg PO DAILY 12/24/23 mcg chewable tablet Current Visit Medications: Current Medications Generic Name Dose Route Start Last Admin Trade Name Freq PRN Reason Stop Dose Admin Hyoscyamine Sulfate 0.125 mg 12/27/23 18:49 Hyoscyamine 0.125 Mg Sl/Oral/Chew SL 01/26/24 18:48 DIRECTED PRN Ringer's Solution 1,000 mls @ 80 mls/hr 12/28/23 06:00 12/28/23 11:03 IV 01/24/24 23:59 80 mls/hr INFUSION STEVO Administration IV Miscellaneous Supplies 1 each 12/28/23 06:00 Iv Access IV 01/24/24 23:59 DIRECTED STEVO Ondansetron HCl 4 mg 12/27/23 18:49 Ondansetron 4 Mg/2 Ml Vial IVP 01/26/24 18:48 Q4H PRN PRN Nausea / Vomiting Sodium Chloride 0 ml 12/28/23 06:00 Normal Saline Flush 10 Ml Syr IV 01/24/24 23:59 PRN PRN Sodium Chloride 0 ml 12/28/23 06:00 Normal Saline 10 Ml Vial IJ 01/24/24 23:59 DIRECTED PRN Sterile Water 0 ml 12/28/23 06:00 Water,Injection,Sterile 10 Ml Vial IJ 01/24/24 23:59 DIRECTED PRN PFSH Active Problems Active Problems: Problem Status Onset Code Family history of colon cancer Z80.0 Conductive hearing loss, external ear H90.2 Impacted cerumen, bilateral H61.23 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 2004- normal Tonsillectomy Tobacco Smoking/Tobacco Use Status: Never Alcohol Alcohol Intake: current Alcohol intake frequency: 0-2 drinks per day Alcohol type: wine Substance Use Substance use: Occasionally Substance use type: marijuana Vital Signs and Lab Results Vital Signs Most Recent Vital Signs in EMR: Most Recent Vital Signs Temp Pulse Resp BP Pulse Ox 36.3 C L 58 L 16 180/97 H 99 12/28/23 10:55 12/28/23 10:55 12/28/23 10:55 12/28/23 10:55 12/28/23 10:55 Lab Results Blood Type / Crossmatch: No Data to Display Complete Blood Count: No Data to Display Complete Metabolic Panel: No Data to Display Liver Function Panel: No Data to Display Coagulation Panel: No Data to Display Cardiac Panel: No Data to Display Arterial Blood Gas: No Data to Display Venous Blood Gas: No Data to Display Pancreas Panel: No Data to Display Thyroid Panel: No Data to Display Infectious Disease: No Data to Display Blood Cultures: No Data to Display Toxicology Panel: No Data to Display Anesthesia Assessment and Plan Anesthesia History Personal History: No History of Anesthesia Complications Family History: No Family History of Anesthesia Complications Exercise Tolerance Exercise Tolerance: Metabolic Equivalents>4 Pertinent Negatives Pertinent Negatives: No Symptoms of GERD, No Major Cardiovascular Symptoms or Complaints and No Major Pulmonary Symptoms or Complaints Cardiac & Pulmonary Exam Cardiac Exam: Normal S1/S2 Heart Sounds Pulmonary Exam: Clear Bilateral Breath Sounds Implantable Cardiac Device Does patient have a Pacemaker or an ICD?: No Airway Exam Known Difficult Airway: No Mallampati Class: 2 Mouth Opening: Normal (> 3cm) Thyromental Distance: Greater than 3 cm Neck Range of Motion: Full ROM Neck Circumference: Normal Teeth Condition: Normal Dentition ASA Classification ASA Score: ASA 2 Emergency Case?: No NPO Status NPO Status: NPO Clears >2 hours, Solids >8 hours Anesthesia Plan Resuscitation Status: Full Code Anesthesia Technique: General Anesthesia Airway Planned: Natural Airway Monitors Used: Standard Monitors
[2023-12-28 11:15] VITALS: BMI 39.1
--- NOTE | 2023-12-28 11:33 | BOWEL_PTH ---
PATIENT: Thuy Roberson LOC: [facility] U#:[id number] AGE/SX: 68/F ROOM: RE12/28/[address]: Roshan Payne MD : [id number] BED: DIS: 12/28/2023 SPEC #: [id number] RECD: 12/28/23 12:57 STATUS: LOBO REQ #: [id number] MARI: 12/28/23 11:[address]: Roshan Payne DEPT: Surgical Specimen RECD BY: Sayra Headley ENTERED: 12/28/23 12:57 SP TYPE: Bowel OTHR DR: Mary Gonsalez Tissues: 1 - BIOPSY BOWEL 2 - BIOPSY BOWEL Procedures: GROSS AND MICRO LEVEL 4 Comments: [id number]
[2023-12-28 11:43] VITALS: BP 136/70; PULSE 69; RESP 14; TEMP 36.3; O2SAT 98
--- NOTE | 2023-12-28 12:02 | W.ANESPOSTOP ---
Postoperative Evaluation Date, Time and Location Date Performed: 12/28/23 Time Performed: 12:02 Patient Location: Day Surgery Unit Vital Signs Most Recent Imported Vital Signs: Most Recent Vital Signs Temp Pulse Resp BP Pulse Ox 36.3 C L 69 14 136/70 98 12/28/23 11:43 12/28/23 11:43 12/28/23 11:43 12/28/23 11:43 12/28/23 11:43 Pain Score Most Recent Pain Score: Most Recent Pain Score Pain Level 0 12/28/23 11:43 Assessment Mental Status: Awake (Alert & Oriented to Patient Baseline) Airway and Respiratory Function: Patent airway with normal (patient baseline) respiratory exam Cardiovascular Function: Hemodynamically Stable Hydration Status: Adequately Hydrated Nausea & Vomiting: No Nausea or Vomiting Pain: Pt. Denies Any Pain Peripheral Nerve Block: Patient did not receive a nerve block
[2023-12-28 12:22] VITALS: BP 143/56; PULSE 67; RESP 14; TEMP 36.6; O2SAT 98
== END 2023-12-28 12:38 | disposition home or self-care (01) ==
LOC: SUR 10:40
PROVIDERS: PCP Nurse Practitioner Family; Visit Provider Surgery
PROC: 0DJD8ZZ Inspection of Lower Intestinal Tract, Via Natural or Artificial Opening Endoscopic (ICD-10-PCS; CPT 45378; principal; 2023-12-28 12:00)
DX: Z12.11 Encounter for screening for malignant neoplasm of colon (principal); D12.3 Benign neoplasm of transverse colon; K57.30 Diverticulosis of large intestine without perforation or abscess without bleeding; Z86.010 Personal history of colon polyps; Z80.0 Family history of malignant neoplasm of digestive organs
CPT/HCPCS: 45380; 88305; J0360; J2704

== ENCOUNTER 2024-07-08 12:20 | Outpatient (REF) | payer MEDICARE, SELFPAY ==
[2024-07-08 15:03] LABS: Abs Immature Grans 0.04 10^3/uL (0.0-0.06); Absolute Basophil Count 0.03 10^3/uL (0.0-0.2); Absolute Eosinophil Count 0.06 10^3/uL (0.0-0.7); Absolute Neutrophil Count 5.06 10^3/uL (1.2-6.7); Basophils % 0.4 %; Eosinophils % 0.8 %; HCT 46.6 % (36.0-46.0); HGB 15.1 g/dL (11.2-15.7); Immature Grans % 0.5 %; MCH 32.8 pg (27.0-33.0); MCHC 32.4 % (32.0-36.0); MCV 101 fL (80-95); MPV 10.3 fL (8.0-11.0); Monocytes % 6.4 %; Neutrophils % 64.9 %; Platelet Count 251 10^3/uL (130-400); RBC 4.61 10^6/uL (3.93-5.22); RDW 11.8 % (11.7-14.6); RDW-SD 43.8 fL; WBC 7.79 10^3/uL (4.4-10.8)
[2024-07-08 16:03] LABS: ALT 37 U/L (14-59); AST 25 U/L (15-37); Albumin 3.7 g/dL (3.4-5.0); Alkaline Phosphatase 91 U/L (46-116); Anion Gap 7.1 mmol/L (3-11); BUN 15 mg/dL (7-18); CO2 29.9 mmol/L (21.0-32.0); CREATININE 0.9 mg/dL (0.55-1.02); Calcium 9.5 mg/dL (8.5-10.1); Calculated LDL 108 mg/dL (<100); Chloride 102 mmol/L (98-107); Cholesterol 222 mg/dL (<200); Estimated GFR 68.35 (mL/min/1.73m2); Glucose 158 mg/dL (74-106); HDL Cholesterol 72 mg/dL (40-60); Sodium 139 mmol/L (136-145); Total Protein 7.1 g/dL (6.4-8.2); Triglyceride 213 mg/dL (<150)
[2024-07-14 15:42] LABS: 25-Hydroxy D Total 54 ng/mL; 25-Hydroxy D2 <4.0 ng/mL; 25-Hydroxy D3 54 ng/mL
== END 2024-07-08 12:21 | disposition home or self-care (01) ==
LOC: NCHCN 12:20
PROVIDERS: PCP Nurse Practitioner Family; Visit Provider Nurse Practitioner Family
DX: I10 Essential (primary) hypertension (principal); M85.89 Other specified disorders of bone density and structure, multiple sites
CPT/HCPCS: 80053; 80061; 82306; 85025

== ENCOUNTER 2024-07-25 02:01 | Outpatient (CLI) | payer MEDICARE, SELFPAY ==
--- NOTE | 2024-07-25 | DI.MAMMO_ITS ---
Exam(s) MAMMO SCREENING EXAM: MAMMO SCREENING CLINICAL HISTORY: SCREENING, FAMILY HISTORY BREAST CANCER, Z80.3 TECHNIQUE: Bilateral full field digital CC and MLO mammographic images were obtained with 3D tomosyn thesis and utilizing computer aided detection (CAD). COMPARISON: Available for comparison. FINDINGS: Masses/Architectural Distortion: There is slight interval increase in size of a nodule in the central left breast seen on the MLO view which now measures 6 mm. It is 6 cm from the nipple. No areas of architectural distortion. Otherwise stable nodules are present. Microcalcifications: No suspicious pleomorphic-type are seen. Skin Thickening/Nipple Retraction: None. IMPRESSION: 1. Slight interval increase in size of a left breast nodule. 2. Spot compression views requested for further evaluation. Left breast ultrasound may be considered at that time. BI-RADS Category 0 - Incomplete: Need additional imaging evaluation Breast Density - Category B - Scattered areas of fibroglandular density Breast density category C or D implies that the patient has dense breast tissue. Dense breast tissue is very common and is not abnormal but dense breast tissue can make it harder to find cancer on a ma mmogram. Also, dense breast tissue may increase their breast cancer risk. This information about the result of the mammogram report was provided to the patient to raise their awareness. Use this report when you speak with the patient about their risks for breast cancer, which includes their family hist ory. At that time, you may recommend for more screening tests (Ultrasound or MRI) as they might be us eful based on their risk. A negative radiographic report should not delay biopsy if a dominant or clinically suspicious mass is present. Up to ten percent of cancers are not identified on mammography. A negative report may reinforce clinical impression. Adenosis and dense breasts may obscure an underlying neoplasm. False positive reports average 6 to 10%. Patient will receive a letter notifying them of these results.
== END 2024-07-25 02:21 ==
LOC: DI 02:01
PROVIDERS: PCP Nurse Practitioner Family; Visit Provider Nurse Practitioner Family
DX: Z12.31 Encounter for screening mammogram for malignant neoplasm of breast (principal); Z80.3 Family history of malignant neoplasm of breast
CPT/HCPCS: 77063; 77067

== ENCOUNTER 2024-07-29 00:28 | Outpatient (CLI) | payer MEDICARE, SELFPAY ==
--- NOTE | 2024-07-29 09:55 | DI.MAMMO_ITS ---
Exam(s) MG MAMMO SCREEN CALL BACK UNI US BREAST LT COMPLETE EXAM: MG MAMMO SCREEN CALL BACK UNI and U/S breast LT complete CLINICAL HISTORY: F/U MAMMO, SLIGHT INTERVAL INCREASE LT BREAST NODULE. TECHNIQUE: Craniocaudal and mediolateral oblique Full Field Digital Mammography views of the left br east with Computer Aided Diagnosis followed by Tomosynthesis and left breast ultrasound. A complete left breast ultrasound was performed. All 4 quadrants were evaluated sonographically. The left axil la and retroareolar regions were also evaluated. COMPARISON: Yanet is made with prior examinations. FINDINGS: Mammography/Tomosynthesis: Masses/Architectural Distortion: There is again seen a lobulated or 2 closely associated well-circums cribed nodules in the central left breast. These findings persist on the additional views. Microcalcifictions: No suspicious pleomorphic-type are seen. Skin Thickening/Nipple Retraction: None. Complete left breast US: Echotexture: Normal appearance of the glandular tissue. Shadowing: No suspicious foci. Cyst: At the 4 o'clock position of the left breast 6 cm from the nipple there is a 0.4 x 0.3 x 0.3 cm simple cyst. This would appear to correspond to the mammographic abnormality. Solid lesions: None seen. Ductal dilation: None. IMPRESSION: 1. No evidence of malignancy is noted. 2. Unless there is more urgent need, follow-up screening mammography is recommended, as per [place] [employer] guidelines. 3. The findings were discussed with the patient on the date of the examination. BI-RADS Category 2 - Benign Findings Breast Density - Category B - Scattered areas of fibroglandular density Breast density Category C or D implies that the patient has dense breast tissue. Dense breast tissue can make it harder to find cancer on a mammogram. Dense breast tissue is also associated with an incr eased risk of breast cancer. This information about the result of the mammogram report was provided to the patient to raise their awareness. Use this report when you speak with the patient about their risks for breast cancer, which includes their family history. At that time, you may recommend additional screening tests (Ultrasoun d or MRI) as these tests may add significant information. A negative radiographic report should not delay biopsy if a dominant or clinically suspicious mass is present. Up to ten percent of cancers are not identified on mammography. A negative report may reinforce clinical impression. Adenosis and dense breasts may obscure an underlying neoplasm. False positive reports average 6 to 10%. Patient will receive a letter notifying them of these results.
== END 2024-07-29 00:48 ==
PROVIDERS: PCP Nurse Practitioner Family; Visit Provider Nurse Practitioner Family
DX: Z12.31 Encounter for screening mammogram for malignant neoplasm of breast (principal); N60.02 Solitary cyst of left breast
CPT/HCPCS: 76642; 77063; 77067

== ENCOUNTER 2025-07-17 09:06 | Outpatient (REF) | payer MEDICARE, SELFPAY ==
[2025-07-17 16:52] LABS: ALT 24 U/L (14-59); AST 15 U/L (15-37); Albumin 3.7 g/dL (3.4-5.0); Alkaline Phosphatase 72 U/L (46-116); Anion Gap 6.1 mmol/L (3-11); BUN 25 mg/dL (7-18); Bilirubin, Total 0.7 mg/dL (0.2-1.0); CO2 33.9 mmol/L (21.0-32.0); Calcium 9.3 mg/dL (8.5-10.1); Calculated LDL 118 mg/dL (<100); Chloride 101 mmol/L (98-107); Cholesterol 216 mg/dL (<200); Estimated GFR 91.83 (mL/min/1.73m2); Glucose 103 mg/dL (74-106); HDL Cholesterol 78 mg/dL (>or=50); Potassium 4.0 mmol/L (3.5-5.1); Sodium 141 mmol/L (136-145); Total Protein 6.9 g/dL (6.4-8.2); Triglyceride 104 mg/dL (<150); Vitamin D 25 Total 55 ng/mL (30-100)
== END 2025-07-17 09:07 | disposition home or self-care (01) ==
LOC: NCHCN 09:06
PROVIDERS: PCP Nurse Practitioner Family; Visit Provider Nurse Practitioner Family
DX: M85.80 Other specified disorders of bone density and structure, unspecified site (principal); I10 Essential (primary) hypertension; E78.5 Hyperlipidemia, unspecified
CPT/HCPCS: 80053; 80061; 82306

== ENCOUNTER → 2025-08-17 01:52 | Outpatient (CLI) | payer MEDICARE, SELFPAY ==
--- NOTE | 2025-08-17 | DI.MAMMO_ITS ---
Exam(s) MAMMO SCREENING EXAM: MAMMO SCREENING CLINICAL HISTORY: SCREENING, Z12.31 TECHNIQUE: Bilateral full field digital CC and MLO mammographic images were obtained with 3D tomosynthesis and utilizing computer aided detection (CAD). COMPARISON: Comparison is made with prior examinations. FINDINGS: Masses/Architectural Distortion: No suspicious masses or areas of architectural distortion are present. There are stable bilateral breast nodules. Microcalcifications: No suspicious pleomorphic-type are seen. Skin Thickening/Nipple Retraction: None. IMPRESSION: 1. No significant interval change with no specific features of malignancy noted. 2. Unless there is more urgent need, screening mammography is recommended, as per [place] [employer] guidelines. BI-RADS Category 2 - Benign Findings Breast Density - Category B - There are scattered areas of fibroglandular density. Breast density Category C or D implies that the patient has dense breast tissue. Dense breast tissue can make it harder to find cancer on a mammogram. Dense breast tissue is also associated with an increased risk of breast cancer. This information about the result of the mammogram report was provided to the patient to raise their awareness. Use this report when you speak with the patient about their risks for breast cancer, which includes their family history. At that time, you may recommend additional screening tests (Ultrasound or MRI) as these tests may add significant information. A negative radiographic report should not delay biopsy if a dominant or clinically suspicious mass is present. Up to ten percent of cancers are not identified on mammography. A negative report may reinforce clinical impression. Adenosis and dense breasts may obscure an underlying neoplasm. False positive reports average 6 to 10%. Patient will receive a letter notifying them of these results.
== END ==
LOC: DI 01:52
PROVIDERS: PCP Nurse Practitioner Family; Visit Provider Nurse Practitioner Family
DX: Z12.31 Encounter for screening mammogram for malignant neoplasm of breast (principal)
CPT/HCPCS: 77063; 77067